=== PATIENT | female | born 1950 | race Caucasian/White ===

== ENCOUNTER → 2018-10-16 | Outpatient (CLI) | payer MEDICARE, OTHER ==
--- NOTE | 2018-10-20 19:42 | MAM ---
EXAM DESCRIPTION: 3D Screening BILATERAL : Digital Mammography. CLINICAL HISTORY: 68 years Female ANNUAL SCREENING . No complaints. No personal or family history of breast cancer. Childbirth. Postmenopausal. No HRT. Lifetime risk of developing breast cancer (Tyrer-Cuzick model)(%): 3.3. COMPARISON: Baseline study at this facility.. No prior reports available. TECHNIQUE: Bilateral CC and MLO projection full-field images, digital tomosynthesis mammographic technique. Bilateral digital 2-D full-field MLO images. CAD not available for tomosynthesis or 2-D images. FINDINGS: The breast parenchymal density pattern is: Scattered areas of fibroglandular density. No skin thickening or nipple retraction. Intramammary lymph nodes right. Bilateral scattered solitary microcalcifications. No focal, stellate mass or density, focal asymmetry , and no suspicious microcalcifications bilaterally. IMPRESSION: Benign exam. BIRAD CATEGORY: 2 BENIGN FINDINGS. RECOMMENDATIONS: FOLLOW UP: Routine digital bilateral mammographic screening, one year interval from September 2018. Written communication explaining the IMPRESSION and follow-up, will be mailed to the patient and referring health care provider. According to the [employer], yearly mammograms are recommended starting at age 40 and continuing as long as a woman is in good health. Any breast change noted on a breast self-exam should be reported promptly to the patient's healthcare provider. Breast MRI is recommended for women with an approximately 20-25% or greater lifetime risk of breast cancer, including women with a strong family history of breast or ovarian cancer and women who have been treated for Hodgkin's disease. A negative mammographic report should not delay tissue diagnosis in patients with significant clinical history or physical findings. Extremely dense breast tissue limits the sensitivity of digital mammography. Electronically signed by: Kaiden Morel MD 10/20/2018 7:41 PM CDT
== END ==
LOC: MAMMO 08:00
PROVIDERS: ATTEND Nurse Practitioner Family
DX: Z12.31 Encounter for screening mammogram for malignant neoplasm of breast (principal)

== ENCOUNTER 2019-01-08 05:25 | Day surgery (SDC) | payer MEDICARE, OTHER ==
[2019-01-08] MEDS ORDERED: LACTATED RINGERS 1,000 ML ONE (06:57)
[2019-01-08] MEDS ORDERED: LIDOCAINE 1% 10 ML VIAL INJ ONE (07:00)
[2019-01-08] MEDS ORDERED: PROPOFOL 200 MG/20 ML VIAL IV ONE (07:00)
[2019-01-08] MEDS ORDERED: LACTATED RINGERS 1,000 ML IVS ONE (07:42)
[2019-01-08] MEDS ORDERED: MIDAZOLAM INJ 2 MG/2 ML VIAL ONE (08:06)
--- NOTE | 2019-01-08 09:48 | OP ---
DATE OF PROCEDURE: 01/08/19 PREOPERATIVE DIAGNOSIS: 1. First screening colonoscopy at 68 years old. POSTOPERATIVE DIAGNOSIS: 1. Colonic polyps. PROCEDURE: 1. Complete colonoscopy with snare biopsy times 4 and biopsy forceps times 1. SURGEON: Yosvany Shaffer MD ANESTHESIA: General. SUMMARY: Snare times 2 small polyps at 10 cm. Biopsy forceps of a 3 mm polyp at 15 cm. A snare at 20 cm of a 2 cm polyp that tattooed. A snare in the proximal transverse, 5 to 7 mm pedunculated polyp that was tattooed. A biopsy at the distal transverse of a 3 mm flat polyp with a possible central ulceration. COMPLICATIONS: None. ESTIMATED BLOOD LOSS: None. CONDITION: Stable. PLAN: Discharge. INDICATION: As stated. PROCEDURE: General anesthesia was induced. Digital rectal exam was normal. The scope was introduced. We immediately identified two smaller sized polyps. There were taken with forceps. We then advanced. We identified the large polyp in the proximal rectum and the rectosigmoid had the largest polyp that was on a wide stalk, so that was taken with a hot forceps and tattooed. Proceeding, we found one. It was difficult to measure, but overall on evaluation seemed to be in the distal transverse. This had a forceps biopsy as it was flat and then a snare was used to take the other one seen in what appeared to the proximal transverse just before the hepatic flexure. It was at least 5 mm, round, on a wide stalk. It was tattooed. We got to the cecum and identified no additional polyps in that area. Upon withdrawal, the colon was desufflated. The patient tolerated the procedure and was awakened and taken taken to Recovery to be discharged. #[id number] cc: YFN Cortez
[2019-01-08 09:53] VITALS: BP 163/64; TEMP 96.8; O2SAT 99
== END 2019-01-08 09:55 | disposition home or self-care (01) ==
LOC: AMB 05:25
PROVIDERS: ATTEND Surgery
DX: Z12.11 Encounter for screening for malignant neoplasm of colon (principal); D12.3 Benign neoplasm of transverse colon; K63.5 Polyp of colon; F41.9 Anxiety disorder, unspecified; E78.00 Pure hypercholesterolemia, unspecified; I10 Essential (primary) hypertension; E03.9 Hypothyroidism, unspecified; Z88.8 Allergy status to other drugs, medicaments and biological substances; Z98.84 Bariatric surgery status; Z79.82 Long term (current) use of aspirin; Z79.899 Other long term (current) drug therapy
CPT/HCPCS: 00812; 45380; 45381; 45385; 88305; J2250; J3490; J7120

== ENCOUNTER → 2019-05-13 | Outpatient (CLI) | payer MEDICARE, OTHER | DX: M25.551 Pain in right hip (principal) ==